=== PATIENT | female | born 1970 | race African-American/Black ===

== ENCOUNTER 2017-05-10 15:30 | Inpatient (IN) | payer MEDICARE, MEDICAID ==
[~2017-05-10] VITALS: Ht 167.6 cm; Wt 86.2 kg
[2017-05-10] MEDS ORDERED: Milk of Magnesia 30ml Ud ORAL PRN (17:30)
[2017-05-10] MEDS ORDERED: Mylanta II UD 30ml ORAL PRN (17:30)
[2017-05-10] MEDS ORDERED: DuoNeb 0.5-3(2.5)mg/3ml neb HHN PRN (17:30)
[2017-05-10] MEDS ORDERED: Miralax 17gm pkt ORAL PRN (17:30)
[2017-05-10] MEDS ORDERED: KLONOPIN1 MG ORAL ×2 (17:37→18:48)
[2017-05-10 17:54] VITALS: BP 118/74
[2017-05-10 17:58] LABS: BASOPHILS % (AUTO) 1.5 % (0.0-2.0); LYMPHOCYTES % (AUTO) 39.7 % (20.0-45.0); MEAN CORPUSCULAR HEMOGLOBIN 30.5 PG (27.0-31.0); MEAN CORPUSCULAR HGB CONC 33.8 G/DL (32.0-36.0); MEAN CORPUSCULAR VOLUME 90 FL (80-99); MEAN PLATELET VOLUME 6.4 FL (6.5-10.1); MONOCYTES % (AUTO) 6.1 % (1.0-10.0); NEUTROPHILS % (AUTO) 52.7 % (45.0-75.0); PLATELET COUNT 134 K/UL (150-450); RED BLOOD COUNT 3.73 M/UL (4.20-5.40); RED CELL DISTRIBUTION WIDTH 12.4 % (11.6-14.8); WHITE BLOOD COUNT 7.9 K/UL (4.8-10.8)
[2017-05-10] MEDS ORDERED: HydrOXYzine 50mg cap ORAL PRN (18:00)
[2017-05-10 18:11] LABS: ALANINE AMINOTRANSFERASE 5 U/L (3-33); ALBUMIN/GLOBULIN RATIO 0.7 (1.0-2.7); ANION GAP 13 (5-15); ASPARTATE AMINO TRANSFERASE 10 U/L (5-40); CARBON DIOXIDE 27 mEQ/L (20-30); CHLORIDE 99 mEQ/L (98-107); CHOLESTEROL 114 mg/dL (< 200); CHOLESTEROL/HDL RATIO 3.6 (3.3-4.4); CREATININE 0.9 mg/dL (0.5-0.9); GLOMERULAR FILTRATION RATE > 60 mL/min (>60); HEMOLYSIS 2; LDL CHOLESTEROL (CALC.) 65 mg/dL (60-99); MAGNESIUM 1.7 mg/dL (1.7-2.5); SODIUM 139 mEQ/L (135-145); TOTAL PROTEIN 7.5 g/dL (6.6-8.7)
[2017-05-10] MEDS ORDERED: Promethazine/DM 6.25mg/5ml ORAL PRN ×2 (18:15→18:30)
[2017-05-10 18:19] LABS: APPEARANCE,URINE CLEAR; KETONES,URINE NEGATIVE (NEGATIVE); LEUKOCYTE ESTERASE ,URINE 1+ (NEGATIVE); NITRITE,URINE NEGATIVE (NEGATIVE); PH,URINE 7 (4.5-8.0); PROTEIN,URINE NEGATIVE (NEGATIVE); UROBILINOGEN,URINE NORMAL MG/DL (0.0-1.0)
[2017-05-10 18:22] LABS: THYROID STIMULATING HORMONE 0.525 uIU/mL (0.300-4.500)
[2017-05-10] MEDS ORDERED: PHENERGAN SUPP25 MG PO (18:48)
[2017-05-10] MEDS ORDERED: HALOPERIDOL1 MG IM (18:48)
[2017-05-10] MEDS ORDERED: COLACE100 MG ORAL (18:48)
[2017-05-10] MEDS ORDERED: VENTOLIN HFA18 GM INH (18:48)
[2017-05-10] MEDS ORDERED: HYDROXYZINE HCL10 M1 PO (18:48)
[2017-05-10] MEDS ORDERED: DEPAKOTE250 MG PO (18:48)
[2017-05-10] MEDS ORDERED: BENZTROPINE MESY1 MG PO (18:48)
[2017-05-10] MEDS ORDERED: TRIFLUOPERAZINE5 MG PO (18:48)
[2017-05-10] MEDS ORDERED: NICOTINE PATCH1 EAC5 TD (18:48)
[2017-05-10] MEDS ORDERED: PAROXETINE HC12.5 MG ORAL (18:48)
[2017-05-10] MEDS ORDERED: TEMAZEPAM15 MG ORAL (18:48)
[2017-05-10] MEDS ORDERED: SYNTHROID75 MCG ORAL (18:48)
[2017-05-10] MEDS ORDERED: RISPERDAL1 MG PO (18:48)
[2017-05-10] MEDS ORDERED: Albuterol 90mcg Inhaler 8gm INH PRN (19:00)
[2017-05-10] MEDS: Depakote 500mg tab ORAL SCH (19:03)
[2017-05-10 19:10] LABS: RBC,URINE 0-2 /HPF (0 - 2)
[2017-05-10 19:11] LABS: BACTERIA,URINE FEW /HPF
[2017-05-10] MEDS: Benztropine 1mg tab ORAL SCH (19:48)
[2017-05-10 20:00] VITALS: BP 119/70
[2017-05-10] MEDS: Docusate 100mg cap ORAL SCH (21:00)
[2017-05-10] MEDS: TRIFLUOPERAZINE 5 MG ORAL SCH (21:00)
[2017-05-10] MEDS: Heparin 5000 units/ml inj SUBQ SCH (21:00)
[2017-05-11] VITALS (7 sets, daily range): BP systolic 106–126; BP diastolic 51–81
[2017-05-11 07:06] LABS: BASOPHILS % (AUTO) 0.6 % (0.0-2.0); LYMPHOCYTES % (AUTO) 34.5 % (20.0-45.0); MEAN CORPUSCULAR HEMOGLOBIN 30.9 PG (27.0-31.0); MEAN CORPUSCULAR HGB CONC 34.3 G/DL (32.0-36.0); MEAN CORPUSCULAR VOLUME 90 FL (80-99); MEAN PLATELET VOLUME 6.8 FL (6.5-10.1); MONOCYTES % (AUTO) 6.3 % (1.0-10.0); NEUTROPHILS % (AUTO) 58.7 % (45.0-75.0); PLATELET COUNT 174 K/UL (150-450); RED BLOOD COUNT 4.48 M/UL (4.20-5.40); RED CELL DISTRIBUTION WIDTH 12.7 % (11.6-14.8); WHITE BLOOD COUNT 7.9 K/UL (4.8-10.8)
[2017-05-11 07:25] LABS: ANION GAP 12 (5-15); CALCIUM 9.8 mg/dL (8.6-10.2); CARBON DIOXIDE 28 mEQ/L (20-30); CHLORIDE 103 mEQ/L (98-107); GLOMERULAR FILTRATION RATE > 60 mL/min (>60); HEMOLYSIS 2; POTASSIUM 4.6 mEQ/L (3.4-4.9); SODIUM 143 mEQ/L (135-145)
[2017-05-11] MEDS: Depakote 500mg tab ORAL SCH ×2 (09:11→17:31)
[2017-05-11] MEDS: Benztropine 1mg tab ORAL SCH ×2 (09:11→17:31)
[2017-05-11] MEDS: Docusate 100mg cap ORAL SCH ×2 (09:12→20:45)
[2017-05-11] MEDS: PARoxetine 10mg tab ORAL SCH (09:12)
[2017-05-11] MEDS: Heparin 5000 units/ml inj SUBQ SCH ×2 (09:22→20:53)
--- NOTE | 2017-05-11 13:10 | Diagnostic Imaging Report ---
Indication: Cough Technique: One view of the chest Comparison: none Findings: Lungs and pleural spaces are clear. Heart size is normal. Impression: No acute process
--- NOTE | 2017-05-11 15:35 | History and Physical ---
History of Present Illness General Date patient seen: May 11, 2017 Time patient seen: 12:00 Reason for Hospitalization: Acute encephalopathy Present Illness HPI 46y/o female with pmh of schizophrenia, asthma, hypothyroidism who presents with AMS. Pt noted to be increasing altered and agitated at her board and care. She was noted to be having auditory hallucinations. She states she hears people talking to her. She was more confused. At baseline she is A&Ox3. She denies f/c , n/v, d/c, chest pain, SOB, dysuria. Denies SI/HI. Allergies: Coded Allergies: NO KNOWN ALLERGIES (Verified Allergy, Unknown, 05/10/17) Medication History Scheduled Benztropine Mesylate* (Benztropine Mesylate*), 1 MG PO BID, (Reported) Clonazepam* (Klonopin*), 1 MG ORAL DAILY, (Reported) Divalproex Sodium* (Depakote*), 500 MG PO BID, (Reported) Docusate Sodium* (Colace*), 100 MG ORAL DAILY AND 2 CAPSQHS, (Reported) Haloperidol* (Haldol*), 100 MG IM MONTHLY, (Reported) Levothyroxine Sodium* (Synthroid*), 75 MCG ORAL DAILY, (Reported) Paroxetine Hcl* (Paroxetine Hcl*), 30 MG ORAL DAILY, (Reported) Risperidone* (Risperdal*), 4 MG PO DAILY, (Reported) Temazepam (Temazepam*), 15 MG ORAL BEDTIME, (Reported) Scheduled PRN Albuterol Sulfate (Ventolin Hfa), 2 PUFFS INH Q4HR PRN for Shortness of breath, (Reported) Clonazepam* (Klonopin*), 1 MG ORAL Q12HR PRN for For Anxiety, (Reported) Hydroxyzine Hcl (Hydroxyzine Hcl), 100 MG PO Q6HR PRN for For Anxiety, (Reported ) Promethazine HCl (Promethegan), 25 MG PO Q6H PRN for Nausea & Vomiting, ( Reported) Miscellaneous Medications Nicotine (Nicotine Patch), 1 EACH TD, (Reported) Trifluoperazine Hcl* (Stelazine*), 10 MG PO, (Reported) Patient History History Provided By: Patient, Medical Record, PMD Healthcare decision maker N Resuscitation status Advanced Directive on File No Past Medical/Surgical History Past Medical/Surgical History: (1) Schizophrenia (2) Hypothyroidism (3) Asthma (4) Anxiety Family History Family History: Patient reports no known family medical history. Social History Social History: (1) lives at board and care Review of Systems ROS Narrative CONSTITUTIONAL: No weight loss, fever, chills, weakness or fatigue. HEENT: Eyes: No visual loss, blurred vision, double vision or yellow sclerae. Ears, Nose, Throat: No hearing loss, sneezing, congestion, runny nose or sore throat. SKIN: No rash or itching. CARDIOVASCULAR: No chest pain, chest pressure or chest discomfort. No palpitations or edema. RESPIRATORY: No shortness of breath, cough or sputum. GASTROINTESTINAL: No anorexia, nausea, vomiting or diarrhea. No abdominal pain or blood. NEUROLOGICAL: No headache, dizziness, syncope, paralysis, ataxia, numbness or tingling in the extremities. No change in bowel or bladder control. MUSCULOSKELETAL: No muscle, back pain, joint pain or stiffness. HEMATOLOGIC: No anemia, bleeding or bruising. LYMPHATICS: No enlarged nodes. No history of splenectomy. PSYCHIATRIC: No history of depression or anxiety. +hallucinations ENDOCRINOLOGIC: No reports of sweating, cold or heat intolerance. No polyuria or polydipsia. ALLERGIES: No history of asthma, hives, eczema or rhinitis. Physical Exam Physical Exam Narrative General: alert, cooperative, no distress, appears stated age Head: normocephalic, without obvious abnormality, atraumatic Eyes: conjunctivae/corneas clear. PERRL, EOM's intact Throat: lips, mucosa, and tongue normal. MMM Neck: supple, symmetrical, trachea midline, and no JVD Lungs: clear to auscultation bilaterally Heart: regular rate and rhythm, S1, S2 normal, no murmur, click, rub or gallop Abdomen: soft, non-tender, non-distended, bowel sounds normal; no masses or organomegaly Extremities: extremities normal, atraumatic, no cyanosis or edema Pulses: 2+ and symmetric Skin: skin color, texture, turgor normal; no rashes or lesions Neurologic: grossly normal, no focal deficits Last 24 Hour Vital Signs Date Time Temp Pulse Resp B/P Pulse Ox O2 Delivery O2 Flow Rate FiO2 05/11/17 11:51 98.2 73 19 126/71 98 Room Air 05/11/17 08:22 97.8 74 19 115/81 99 Room Air 05/11/17 07:51 72 16 Room Air 21 05/11/17 04:00 97.5 68 18 106/51 96 Room Air 05/11/17 00:00 97.1 64 18 117/71 98 Room Air 05/10/17 20:30 62 16 Room Air 21 05/10/17 20:00 97.5 65 18 119/70 96 Room Air 05/10/17 17:54 97.7 70 15 118/74 98 Room Air Intake and Output 05/10/17 05/11/17 19:00 07:00 Intake Total 200 ml Balance 200 ml Intake Oral 200 ml # Voids 1 Laboratory Tests Test 05/10/17 17:43 05/10/17 17:45 05/11/17 06:20 White Blood Count 7.9 K/UL (4.8-10.8) 7.9 K/UL (4.8-10.8) Red Blood Count 3.73 M/UL (4.20-5.40) L 4.48 M/UL (4.20-5.40) Hemoglobin 11.4 G/DL (12.0-16.0) L 13.8 G/DL (12.0-16.0) Hematocrit 33.6 % (37.0-47.0) L 40.4 % (37.0-47.0) Mean Corpuscular Volume 90 FL (80-99) 90 FL (80-99) Mean Corpuscular Hemoglobin 30.5 PG (27.0-31.0) 30.9 PG (27.0-31.0) Mean Corpuscular Hemoglobin Concent 33.8 G/DL (32.0-36.0) 34.3 G/DL (32.0-36.0) Red Cell Distribution Width 12.4 % (11.6-14.8) 12.7 % (11.6-14.8) Platelet Count 134 K/UL (150-450) L 174 K/UL (150-450) Mean Platelet Volume 6.4 FL (6.5-10.1) L 6.8 FL (6.5-10.1) Neutrophils (%) (Auto) 52.7 % (45.0-75.0) 58.7 % (45.0-75.0) Lymphocytes (%) (Auto) 39.7 % (20.0-45.0) 34.5 % (20.0-45.0) Monocytes (%) (Auto) 6.1 % (1.0-10.0) 6.3 % (1.0-10.0) Eosinophils (%) (Auto) 0.0 % (0.0-3.0) 0.0 % (0.0-3.0) Basophils (%) (Auto) 1.5 % (0.0-2.0) 0.6 % (0.0-2.0) Sodium Level 139 mEQ/L (135-145) 143 mEQ/L (135-145) Potassium Level 4.0 mEQ/L (3.4-4.9) 4.6 mEQ/L (3.4-4.9) Chloride Level 99 mEQ/L (98-107) 103 mEQ/L (98-107) Carbon Dioxide Level 27 mEQ/L (20-30) 28 mEQ/L (20-30) Anion Gap 13 (5-15) 12 (5-15) Blood Urea Nitrogen 10 mg/dL (7-23) 10 mg/dL (7-23) Creatinine 0.9 mg/dL (0.5-0.9) 1.0 mg/dL (0.5-0.9) H Estimat Glomerular Filtration Rate > 60 mL/min (>60) > 60 mL/min (>60) Glucose Level 87 mg/dL (74-106) 89 mg/dL (74-106) Hemoglobin A1c 5.0 % (< 6.0) Calcium Level 9.0 mg/dL (8.6-10.2) 9.8 mg/dL (8.6-10.2) Magnesium Level 1.7 mg/dL (1.7-2.5) Total Bilirubin < 0.2 mg/dL (0.0-1.2) Aspartate Amino Transf (AST/SGOT) 10 U/L (5-40) Alanine Aminotransferase (ALT/SGPT) 5 U/L (3-33) Alkaline Phosphatase 51 U/L (35-104) Pro-B-Type Natriuretic Peptide 33 pg/mL (0-125) Total Protein 7.5 g/dL (6.6-8.7) Albumin 3.2 g/dL (3.5-5.2) L Globulin 4.3 g/dL Albumin/Globulin Ratio 0.7 (1.0-2.7) L Triglycerides Level 85 mg/dL (< 150) Cholesterol Level 114 mg/dL (< 200) LDL Cholesterol 65 mg/dL (60-99) HDL Cholesterol 32 mg/dL (> 60) Cholesterol/HDL Ratio 3.6 (3.3-4.4) Vitamin B12 Level 1273 pg/mL (211-946) H Vitamin D 25-Hydroxy Pending 25-Hydroxy Vitamin D2 Pending 25-Hydroxy Vitamin D3 Pending Folate Pending Thyroid Stimulating Hormone (TSH) 0.525 uIU/mL (0.300-4.500) Urine Color Pale yellow Urine Appearance Clear Urine pH 7 (4.5-8.0) Urine Specific Peck 1.005 (1.005-1.035) Urine Protein Negative (NEGATIVE) Urine Glucose (UA) Negative (NEGATIVE) Urine Ketones Negative (NEGATIVE) Urine Occult Blood Negative (NEGATIVE) Urine Nitrite Negative (NEGATIVE) Urine Bilirubin Negative (NEGATIVE) Urine Urobilinogen Normal MG/DL (0.0-1.0) Urine Leukocyte Esterase 1+ (NEGATIVE) H Urine RBC 0-2 /HPF (0 - 2) Urine WBC 2-4 /HPF (0 - 2) Urine Squamous Epithelial Cells None /LPF (NONE/OCC) Urine Bacteria Few /HPF (NONE) Microbiology Date/Time Source Procedure Growth Status 05/10/17 17:45 Urine,Clean Catch Urine Culture - Preliminary Resulted Height (Feet): 5 Height (Inches): 6.00 Weight (Pounds): 190 Medications Current Medications Medications (Trade) Dose Ordered Sig/Phyllis Route PRN Reason Start Time Stop Time Status Last Admin Dose Admin Acetaminophen (Tylenol) 650 mg Q4H PRN ORAL Mild Pain (Pain Scale 1-3) 05/10/17 17:30 06/09/17 17:29 Al Hydroxide/Mg Hydroxide (Mylanta II) 30 ml Q6H PRN ORAL dyspepsia 05/10/17 17:30 06/09/17 17:29 Albuterol Sulfate (Proventil MDI) 2 puff Q4H PRN INH Shortness of Breath 05/10/17 19:00 06/09/17 18:59 Albuterol/ Ipratropium (DuoNeb 0.5-3(2.5)mg/3ml) 3 ml Q4H PRN HHN Shortness of Breath 05/10/17 17:30 05/15/17 17:29 Benztropine Mesylate (Cogentin) 1 mg BID ORAL 05/10/17 18:00 06/09/17 17:59 05/11/17 09:11 Bisacodyl (Dulcolax) 10 mg HSPRN PRN RECTAL Constipation 05/10/17 17:30 06/09/17 17:29 Clonazepam (KlonoPIN) 1 mg DAILY ORAL 05/11/17 09:00 05/18/17 08:59 05/11/17 09:12 Clonazepam (KlonoPIN) 1 mg Q12HR PRN ORAL ANXIETY 05/10/17 18:00 05/17/17 17:59 Dextrose (Dextrose 50%) STAT PRN IV Hypoglycemia 05/10/17 17:15 06/09/17 17:14 Dextrose (Dextrose 50%) STAT PRN IV Hypoglycemia 05/10/17 17:15 06/09/17 17:14 Dextrose (Dextrose 50%) STAT PRN IV Hypoglycemia 05/10/17 17:30 06/09/17 17:29 Divalproex Sodium (Depakote) 500 mg BID ORAL 05/10/17 18:00 06/09/17 17:59 05/11/17 09:11 Docusate Sodium (Colace) 100 mg EVERY 12 HOURS ORAL 05/10/17 21:00 06/09/17 20:59 05/11/17 09:12 Heparin Sodium (Porcine) (Heparin 5000 units/ml) 5,000 units EVERY 12 HOURS SUBQ 05/10/17 21:00 06/09/17 20:59 05/11/17 09:22 Hydroxyzine HCl (Atarax) 100 mg Q6H PRN ORAL Itching 05/10/17 18:00 06/09/17 17:59 Levothyroxine Sodium (Synthroid) 75 mcg DAILY@0630 ORAL 05/11/17 06:30 06/10/17 06:29 05/11/17 05:36 Magnesium Hydroxide (Mom) 30 ml HSPRN PRN ORAL Constipation 05/10/17 17:30 06/09/17 17:29 Nicotine (Nicoderm) 1 patch Q24H TDERMAL 05/10/17 18:00 06/09/17 17:59 Ondansetron HCl (Zofran) 4 mg Q6H PRN IVP Nausea & Vomiting 05/10/17 17:30 06/09/17 17:29 Paroxetine HCl (Paxil) 30 mg DAILY ORAL 05/11/17 09:00 06/10/17 08:59 05/11/17 09:12 Polyethylene Glycol (Miralax) 17 gm HSPRN PRN ORAL Constipation 05/10/17 17:30 06/09/17 17:29 Promethazine HCl/ Dextromethorphan (Phenergan DM) 12.5 mg Q8HR PRN ORAL For Cough 05/10/17 18:30 06/09/17 18:29 Risperidone (RisperDAL) 4 mg BID ORAL 05/11/17 09:00 06/10/17 08:59 05/11/17 09:12 Temazepam (Restoril) 15 mg BEDTIME ORAL 05/10/17 21:00 05/17/17 20:59 Trifluoperazine HCl (Stelazine) 10 mg BEDTIME ORAL 05/10/17 21:00 06/09/17 20:59 Assessment/Plan Problem List: (1) Acute encephalopathy ICD Codes: G93.40 - Encephalopathy, unspecified SNOMED: 8300382 (2) Schizophrenia ICD Codes: F20.9 - Schizophrenia, unspecified SNOMED: 78236740 (3) Hypothyroidism ICD Codes: E03.9 - Hypothyroidism, unspecified SNOMED: 02890322 (4) Anxiety ICD Codes: F41.9 - Anxiety disorder, unspecified SNOMED: 69409086 (5) Asthma ICD Codes: J45.909 - Unspecified asthma, uncomplicated SNOMED: 246328250 Status: stable Assessment/Plan Acute encephalopathy - possibly 2/2 infectious etiology vs metabolic disturbance vs worsening psychosis given schizophrenia Admit inpt F/u basic labs Check TSH, B12/folate, Vit D Check U/A w/ reflex to culture Check CXR Monitor mental status and neuro exam closely Consider neuro and/or psych eval Cont home meds including psych meds PT/OT DVT Prophylaxis: SCD, HSQ Code Status: Full Hospital Classification Declaration: Based on this initial evaluation, and depending on the patient's clinical course, I anticipate that this patient will require hospitalization for 2-3 days for AMS and close respiratory/hemodynamic monitoring. Disposition: Once the patient is stable to leave the hospital, I anticipate the patient will likely be discharged to the following environment: B&C vs SNF I spent 70 minutes on this patient's case, and 39 minutes were dedicated to counseling and/or care coordination. Discussed with patient/family, nursing staff, SW/CM, [] regarding clinical status, treatment course, and disposition planning. Time of note may not reflect time of encounter. Hosea Alonso M.D. May 11, 2017 15:35
[2017-05-11] MEDS: TRIFLUOPERAZINE 5 MG ORAL SCH (20:46)
[2017-05-12 04:00] VITALS: BP 118/84
[2017-05-12 07:25] VITALS: BP 123/52
--- NOTE | 2017-05-12 08:31 | Cardiology Report ---
APPROVED REPORT EKG Measurement Heart [id number] Normal sinus rhythm Low voltage QRS Cannot rule out Anteroseptal infarct, age undetermined Abnormal ECG
[2017-05-12] MEDS: Benztropine 1mg tab ORAL SCH ×2 (08:34→18:03)
[2017-05-12] MEDS: PARoxetine 10mg tab ORAL SCH (08:34)
[2017-05-12] MEDS: Depakote 500mg tab ORAL SCH ×2 (08:34→18:03)
[2017-05-12] MEDS: Docusate 100mg cap ORAL SCH ×2 (08:35→21:06)
[2017-05-12] MEDS: Heparin 5000 units/ml inj SUBQ SCH ×2 (08:35→21:00)
[2017-05-12 11:54] VITALS: BP 123/80
[2017-05-12 15:57] VITALS: BP 114/63
[2017-05-12 20:00] VITALS: BP 115/70
[2017-05-12] MEDS: TRIFLUOPERAZINE 5 MG ORAL SCH (21:07)
[2017-05-13] VITALS: BP 115/86
[2017-05-13 07:31] VITALS: BP 117/77
[2017-05-13] MEDS: PARoxetine 10mg tab ORAL SCH (08:23)
[2017-05-13] MEDS: Depakote 500mg tab ORAL SCH (08:23)
[2017-05-13] MEDS: Benztropine 1mg tab ORAL SCH (08:24)
[2017-05-13] MEDS: Docusate 100mg cap ORAL SCH (08:24)
[2017-05-13] MEDS: Heparin 5000 units/ml inj SUBQ SCH (08:25)
[2017-05-13 12:16] VITALS: BP 99/49
[2017-05-13 12:16] LABS: VITAMIN D 25-OH TOTAL 12 ng/mL (.)
--- NOTE | 2017-05-14 08:35 | General Progress Note ---
Assessment/Plan Problem List: (1) Acute encephalopathy ICD Codes: G93.40 - Encephalopathy, unspecified SNOMED: 5205164 (2) Schizophrenia ICD Codes: F20.9 - Schizophrenia, unspecified SNOMED: 17069710 (3) Hypothyroidism ICD Codes: E03.9 - Hypothyroidism, unspecified SNOMED: 92408765 (4) Anxiety ICD Codes: F41.9 - Anxiety disorder, unspecified SNOMED: 40824566 (5) Asthma ICD Codes: J45.909 - Unspecified asthma, uncomplicated SNOMED: 395928195 Status: stable Assessment/Plan Acute encephalopathy - possibly 2/2 infectious etiology vs metabolic disturbance vs worsening psychosis given schizophrenia Pt has improved F/u Vit D level Workup thus far unrevealing for infectious or metabolic disturbance Monitor mental status and neuro exam closely Consider neuro and/or psych eval Cont home meds including psych meds PT/OT DC planning--pt requests SNF placement DVT Prophylaxis: SCD, HSQ Code Status: Full Hospital Classification Declaration: Based on this initial evaluation, and depending on the patient's clinical course, I anticipate that this patient will require hospitalization for 1-2 days for AMS and close respiratory/hemodynamic monitoring. Disposition: Once the patient is stable to leave the hospital, I anticipate the patient will likely be discharged to the following environment: B&C vs SNF I spent 40 minutes on this patient's case, and >50% was dedicated to counseling and/or care coordination. Discussed with patient/family, nursing staff, SW/CM regarding clinical status, treatment course, and disposition planning. Time of note may not reflect time of encounter. Subjective Date patient seen: May 12, 2017 Time patient seen: 12:00 ROS Limited/Unobtainable: No Constitutional: Reports: weakness HEENT: Reports: no symptoms Cardiovascular: Reports: no symptoms Respiratory: Reports: no symptoms Gastrointestinal/Abdominal: Reports: no symptoms Genitourinary: Reports: no symptoms Neurologic/Psychiatric: Reports: no symptoms Endocrine: Reports: no symptoms Hematologic/Lymphatic: Reports: no symptoms Allergies: Coded Allergies: NO KNOWN ALLERGIES (Verified Allergy, Unknown, 05/10/17) Subjective Pt doing better. A&Ox3 this AM. Cont to hear some voices, but slightly better Denies f/c, n/v, d/c, chest pain, SOB Objective Last 24 Hour Vital Signs Date Time Temp Pulse Resp B/P Pulse Ox O2 Delivery O2 Flow Rate FiO2 05/13/17 12:16 97.2 90 16 99/49 98 Room Air Intake and Output 05/13/17 05/14/17 19:00 07:00 Intake Total 1025 ml Balance 1025 ml Intake Oral 800 ml IV Total 225 ml # Voids 2 Height (Feet): 5 Height (Inches): 6.00 Weight (Pounds): 190 Objective General: alert, cooperative, no distress, appears stated age Head: normocephalic, without obvious abnormality, atraumatic Eyes: conjunctivae/corneas clear. PERRL, EOM's intact Throat: lips, mucosa, and tongue normal. MMM Neck: supple, symmetrical, trachea midline, and no JVD Lungs: clear to auscultation bilaterally Heart: regular rate and rhythm, S1, S2 normal, no murmur, click, rub or gallop Abdomen: soft, non-tender, non-distended, bowel sounds normal; no masses or organomegaly Extremities: extremities normal, atraumatic, no cyanosis or edema Pulses: 2+ and symmetric Skin: skin color, texture, turgor normal; no rashes or lesions Neurologic: grossly normal, no focal deficits Hosea Alonso M.D. May 14, 2017 08:35
--- NOTE | 2017-05-14 08:50 | Discharge Summary ---
Discharge Summary Hospital Course Date of Admission May 10, 2017 at 16:30 Date of Discharge May 13, 2017 at 13:25 Admitting Diagnosis HPI Maria L Schilling is a 46 year old female who was admitted on May 10, 2017 at 16: 30 for Encephalopathy Discharge Discharge Disposition Patient was discharged to SNF/Subacute Facility(03) Discharge Diagnoses: Hosea Alonso M.D. May 14, 2017 08:45
== END 2017-05-13 13:25 | DRG 72 ==
LOC: 4E 16:30
DX: G93.40 Encephalopathy, unspecified (principal); E03.9 Hypothyroidism, unspecified; F20.9 Schizophrenia, unspecified; F41.9 Anxiety disorder, unspecified; J45.909 Unspecified asthma, uncomplicated
CPT/HCPCS: 36415; 71010; 80048; 80053; 80061; 81003; 82306; 82607; 82746; 83036; 83735; 83880; 84443; 85025; 87086; 93005; 94664; C9399; J7620